=== PATIENT | male | born 2000 | race Two or more races ===

== ENCOUNTER 2022-12-09 23:58 | Emergency (ER) | payer MEDICAID, SELFPAY ==
--- NOTE | ~2022-12-09 | XR_ITS ---
EXAMINATION: XR KNEE, RIGHT CLINICAL INFORMATION: Pain COMPARISON: None available. TECHNIQUE: Four views of the right knee. FINDINGS: No fracture or joint effusion. Alignment is anatomic. Joint spaces are maintained. No abnormal soft tissue calcification. XR/XR knee RT 2V IMPRESSION: No significant abnormality identified.
[2022-12-10 00:08] VITALS: BP 151/64; PULSE 105; RESP 18; TEMP 37.3; O2SAT 97; BMI 34.5
[2022-12-10 03:07] VITALS: BP 114/54; PULSE 78; RESP 14; TEMP 36.7; O2SAT 97
--- NOTE | 2022-12-10 03:09 | PC.NURSE ---
Pt ca&ox4, no signs of distress. Pt reports 8/10 right knee pain Pt unsure of head strike or loc. Pts gf at bedside pt changed into hospital attire. Pt given urinal plan of care ongoing.
[2022-12-10 03:17] LABS: Hematocrit 41.3 % (42.0-52.0); Hemoglobin 13.5 g/dl (14.0-18.0); Mean Corpuscular HGB Conc 32.7 g/dl (31.0-36.0); Mean Corpuscular Hemoglobin 23.4 pg (27.0-33.0); Mean Corpuscular Volume 71.7 fL (80.0-98.0); Mean Platelet Volume 9.6 fL (9.4-12.4); Platelet Count 241 X10*3/uL (160-400); Red Blood Count 5.76 X10*6/uL (4.60-5.80); Red Cell Distribution Width 14.1 % (11.0-16.0); White Blood Count 7.3 X10*3/uL (4.8-10.8)
--- NOTE | 2022-12-10 03:19 | PC.NURSE ---
Pt ambulated to restroom. UA cup given. Plan of care ongoing.
[2022-12-10 03:32] LABS: Alanine Aminotransferase 18 U/L (0-40); Albumin Level 4.4 g/dL (3.5-5.0); Alkaline Phosphatase 67 U/L (39-117); Anion Gap 15 (12-20); Aspartate Amino Transferase 18 U/L (5-37); Bilirubin Total 0.4 mg/dL (0.0-1.0); Blood Urea Nitrogen 10 mg/dL (9-16); Calcium 9.4 mg/dL (8.4-10.2); Carbon Dioxide 21 mmol/L (22-29); Chloride 106 mmol/L (96-108); Estimated Glomerular Filt Rate > 60; Ethanol 92 mg/dL; Glucose Random 101 mg/dL (60-115); Potassium 3.4 mmol/L (3.3-5.1); Sodium 139 mmol/L (135-145); Total Protein 7.2 g/dL (6.5-8.0)
--- NOTE | 2022-12-10 03:49 | PC.NURSE ---
Pt could not provide urine. Pt requested and given water. Plan of care ongoing.
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
[2022-12-10] MEDS: Ibuprofen 600 MG TABLET PO (06:03)
--- NOTE | 2022-12-10 06:09 | PC.NURSE ---
Pt ca&ox4, no signs of distress. Pt medicated per jun. Pt placed in knee brace Pt given crutches
== END 2022-12-10 06:27 | disposition home or self-care (01) ==
PROVIDERS: Emergency Provider Internal Medicine
DX: S83.91XA Sprain of unspecified site of right knee, initial encounter (principal); V28.09XA Other motorcycle driver injured in noncollision transport accident in nontraffic accident, initial encounter; F12.90 Cannabis use, unspecified, uncomplicated; Y93.89 Activity, other specified; Y92.410 Unspecified street and highway as the place of occurrence of the external cause; Y99.9 Unspecified external cause status
CPT/HCPCS: 36415; 73560; 80053; 80307; 85027; 99283; 99284

== ENCOUNTER 2023-01-04 09:41 | Outpatient (AMB) | payer MEDICAID, SELFPAY ==
[2023-01-04 09:43] VITALS: BMI 34.5
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
== END 2023-01-04 10:22 | disposition home or self-care (01) ==
PROVIDERS: Visit Provider Physician Assistant
DX: M23.91 Unspecified internal derangement of right knee (principal)
CPT/HCPCS: 99203

== ENCOUNTER → 2023-01-04 09:41 | Outpatient (BNVA) | payer MEDICAID, SELFPAY | PROVIDERS: Visit Provider Physician Assistant | DX: M23.91 Unspecified internal derangement of right knee (principal) | CPT/HCPCS: 99212 ==

== ENCOUNTER 2023-01-12 19:25 | Emergency (ER) | payer MEDICAID, SELFPAY ==
[2023-01-12 20:15] VITALS: BP 132/74; PULSE 97; RESP 20; TEMP 36.7; O2SAT 98; BMI 29.0
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
--- NOTE | 2023-01-12 20:26 | PC.NURSE ---
pt assess and discharge by provider, this rn just reviewed discharge instruction with pt. pt verbalized understanding.
== END 2023-01-12 20:28 | disposition home or self-care (01) ==
PROVIDERS: Emergency Provider Emergency Medicine
DX: M25.561 Pain in right knee (principal)
CPT/HCPCS: 99282; 99283

== ENCOUNTER 2023-01-13 11:09 | Outpatient (AMB) | payer MEDICAID, SELFPAY ==
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
[2023-01-13 11:28] VITALS: BMI 29.0
== END 2023-01-13 12:08 | disposition home or self-care (01) ==
PROVIDERS: Visit Provider Orthopaedic Surgery
DX: S83.511A Sprain of anterior cruciate ligament of right knee, initial encounter (principal); M25.461 Effusion, right knee
CPT/HCPCS: 99214

== ENCOUNTER → 2023-01-13 11:09 | Outpatient (BNVA) | payer MEDICAID, SELFPAY | PROVIDERS: Visit Provider Orthopaedic Surgery | DX: S83.511A Sprain of anterior cruciate ligament of right knee, initial encounter (principal); M25.461 Effusion, right knee | CPT/HCPCS: 99212 ==

== ENCOUNTER 2023-02-01 07:31 | Day surgery (SDC) | payer MEDICAID, SELFPAY ==
[2023-01-27 17:38] VITALS: BMI 32.3
--- NOTE | 2023-01-31 10:19 | HO.ANESPROP2 ---
Documented by User: Mellissa Casey NP 01/31/23 10:20 HPI - Anesthesia Eval Consult details Narrative: 22yo M for Right ACL Joint Reconstruction w/autograft vs allograft PMFSH Active Problems Active Problems: All Active Problems (Updated 01/27/23 @ 17:30 by Doretha Haywood, [place]) Effusion, right knee (Acute) New tear of anterior cruciate ligament of right knee (Acute) Internal derangement of right knee (Acute) Past Medical History Medical History Left sided abdominal pain of unknown cause Depression History of migraine Asthma Marijuana use Surgical History Surgical History No pertinent past surgical history Social History Alcohol intake: current Alcohol intake frequency: a few times a week Patient Tobacco Use Status: Current everyday Tobacco user Substance Use Type: Marijuana Current occupational status: employed 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 Meds Allergies Allergy/AdvReac Type Severity Reaction Status Date / Time No Known Allergies Allergy Verified 02/07/23 12:44 Exam Exam Date and Time: January 31, 2023 1019 Height,Weight and Vital Signs: Height 5 ft 6 in Weight 90.718 kg Pertinent Lab Results Pertinent Lab Results: Laboratory Tests 12/10/22 03:10 WBC 7.3 Hgb 13.5 L Hct 41.3 L Plt Count 241 Sodium 139 Potassium 3.4 Chloride 106 Carbon Dioxide 21 L BUN 10 Creatinine 0.81 Assessment and Plan Assessment Anesthesia Assessment: Chart Reviewed Documented by User: Heath Sanchez MD 02/23/23 18:13 PMFSH Past Medical History Medical History Left sided abdominal pain of unknown cause Depression History of migraine Asthma Marijuana use Family History Family history of problems with anesthesia: No Surgical History Surgical History No pertinent past surgical history History of Problems with Anesthesia: No Social History (Reviewed 11/07/23 @ 12:44 by NARDA Katz Alcohol intake: current Alcohol intake frequency: a few times a week Patient Tobacco Use Status: Current everyday Tobacco user Substance Use Type: Marijuana Current occupational status: employed 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 Allergies Allergy/AdvReac Type Severity Reaction Status Date / Time No Known Allergies Allergy Verified 02/07/23 12:44 Exam Airway Mallampati Class: IV Loose/Missing/Broken Teeth: Yes Assessment and Plan Assessment Anesthesia Assessment: Anesthesia Plan Discussed Final Anesthetic Review Family History of Problems with Anesthesia: No History of Problems with Anesthesia: No NPO: Yes ASA Class: III Final Preanesthetic Review: Meds/Allgs Chart Reviewed, Consent Obtained/Reviewed and Anes Risks/Benef Reviewed Patient Risk: Intermediate Procedure Risk: Intermediate Anesthetic Plan Anesthetic Plan: MAC:, Regional Block and Agree w/ Assess. and Plan Disposition: Standard PACU
[2023-02-01] VITALS (9 sets, daily range): BP systolic 132–151; BP diastolic 65–86; PULSE 82–95; RESP 15–20; TEMP 36.3–36.6; O2SAT 97–100; BMI 33.1
[2023-02-01] MEDS: Lactated Ringers 1,000 ML 100 ML IVCONT (08:17)
[2023-02-01] MEDS: HYDROmorphone HCl 0.5 MG/0.5 ML SYRINGE IVPUSH (11:42)
[2023-02-01] MEDS: oxyCODONE HCl Immed Release 5 MG TABLET PO (11:53)
[2023-02-01] MEDS: HYDROmorphone HCl 0.5 MG/0.5 ML SYRINGE 0.25 MG IVPUSH ×2 (12:00→12:10)
--- NOTE | 2023-02-01 12:01 | P.BOP_ITS ---
Brief Operative Note Date of Service: 02/01/23 Pre-op diagnosis: right acl rupture Post-op diagnosis: same Procedure: Right ACL reconstruction with hamstring autograft and posterior tibial tendon allograft Implants: Mars and Nephew endo button and 11x25 mm interference screw Surgeon: Cleve Franco MD Anesthesia: GETA Was an Supervisor [employer] used for this Procedure?: Yes Supervisor [employer]: Juana Henao Estimated blood loss (mL): 20 Tourniquet time (min): 65 IV fluids (mL): 1,000 Pathology: none sent Condition: stable Disposition: PACU
--- NOTE | 2023-02-01 13:08 | PC.NURSE ---
PATIENT DISCHARGED HOME VIA UBER AND HIS AT HIS SIDE.
--- NOTE | 2023-02-06 11:41 | P.OP_ITS ---
Operative Note Operative Note Date of Service: 02/01/23 Narrative: Date of Service: 02/01/23 Pre-op diagnosis: right acl rupture Post-op diagnosis: same Procedure: Right ACL reconstruction with hamstring autograft and posterior tibial tendon allograft Implants: Mars and Nephew endo button and 11x25 mm interference screw Surgeon: Cleve Franco MD Anesthesia: GETA Was an Manager Occupational used for this Procedure?: Yes Manager Occupational: Juana Henao Estimated blood loss (mL): 20 Tourniquet time (min): 65 IV fluids (mL): 1,000 Pathology: none sent Condition: stable Disposition: PACU Procedure in detail: Patient was brought to the operating room placed supine on the arthroscopic table and prepped and draped in standard sterile fashion. A time-out was called to identify proper site proper procedure proper surgeon and IV antibiotics per weight were administered. Under anesthesia he had a + pivot shift. I began making an oblique 2 cm incision over the pes anserine bursa. Sartorius fascia was identified and incised and the to pes tendons were identified. First was grasped and whipstitched and then distally and adhesions removed from the inferior border and a tendon stripper was used to remove this tendon. This was small and likely the gracilis. I then identified the 2nd tendon and repeated this process and remove the semi tendinosis which was much larger. These were whip stitched and full did on the back table they passed easily through 7 Sizer and so the decision was made to open the allograft as well. I began by exsanguinating the limb and insufflating tourniquet to 300 mm Hg. Then made a standard anterolateral stab incision. The knee was insufflated with water and 30 degree arthroscope was placed. There was grade 1 fibrillations of the patella but overall suprapatellar pouch and the gutters were clean. I descended into the medial compartment where I made my far medial portal under direct visualization. There was a small posteromedial meniscus tear with a stable root. There was normal medial compartment otherwise. I then examined the notch where there was a + empty wall sign and an intact PCL. The lateral compartment was nl with no meniscal damage. I debrided the stump and acl footprint and performed a limited notchplasty. I then, through a far AM portal and a 7mm behind the back guide, drilled a k-wire through the LFC with the knee in hyper- flexion. I measured the tunnel as a 31 and then after sizing the hybrid allograft on the back table drilled a 25 mm tunnel with an 11 mm reamer. The final 6 mm was drilled with a 4.5 reamer. I then pulled a suture through the femoral tunnel and turned my attention to the tibia. I did examine the femoral tunnel and was satisfied with the posterior wall and its location low and medial at the anatomic footprint. I placed my tibial drill guide in 55 deg and, through a anteromedial inc just lateral to the tibial tubercle placed a k-wire into the notch exiting just medial to the anterior horn insertion of the lateral meniscus. I then over-reamed with an 11 reamer. I cleaned the tunnels up with a shaver. On the back table I whip-stitched the allograft to fit through an 11 aperture and attached the femoral button to the looped end. I placed the graft on 15lbs of tension for 10 minutes. I then passed the allograft through the tibial tunnel and femoral tunnel and flipped the button. I cycled the knee about 10-15 cycles and then placed a tibial interference screw with the knee in hyper-extension while holding the graft taught. Once I was satisfied that the interference screw was buried I examined the ACL and the medial meniscus repair. The repair was stable and the ACL was not impinging and there was a negative pivot shift. I then removed all instrumentation and closed the incisions with nylon. Patient was then placed in sterile dressings and a hinged knee brace. She was then extubated brought recovery room stable condition. There were no known complications.
== END 2023-02-01 13:05 | disposition home or self-care (01) ==
LOC: HO.SSS 07:32
PROVIDERS: Visit Provider Orthopaedic Surgery
PROC: (CPT 29888; principal; 2023-02-01 09:40)
DX: S83.511A Sprain of anterior cruciate ligament of right knee, initial encounter (principal); Y35.813A Legal intervention involving manhandling, suspect injured, initial encounter; Y93.02 Activity, running; Y92.410 Unspecified street and highway as the place of occurrence of the external cause; Y99.9 Unspecified external cause status
CPT/HCPCS: 29888; 29882; C1713; C1769; J0131; J0171; J0690; J1100; J1170; J2250; J2405; J3010

== ENCOUNTER → 2023-02-01 07:31 | Outpatient (BNV) | payer MEDICAID, SELFPAY | PROVIDERS: Visit Provider Orthopaedic Surgery | DX: S83.511A Sprain of anterior cruciate ligament of right knee, initial encounter (principal) | CPT/HCPCS: 29888 ==

== ENCOUNTER 2023-02-07 12:41 | Outpatient (AMB) | payer MEDICAID, SELFPAY ==
--- NOTE | 2023-02-07 12:43 | MHC.OFFVIS ---
Intake Intake Visit Reasons: PO-Rt ACL Reconstruction 02/01 NE Intake Note: Kristopher is a 22 year old male who presents today for his first post operative appointment s/p Right ACL Recon 02/01/23. Patient reports that he is having continued pain. He has been taking percocet and it is not helping with his pain. He has numbness nad tingling from the knee to the ankle. Allergies No Known Allergies Allergy (Verified 02/07/23 12:44) HPI PO-Rt ACL Reconstruction 02/01 NE HPI Details 22-year-old male who presents in the office today 6 days status post right ACL reconstruction with hamstring autograft and posterior tibial tendon allograft, which was performed on 02/01/[address] Franco. The patient reports having continued pain. He confirms he has been taking percocet and states it is not helping with his pain. He confirms numbness and tingling form the knee radiating down to the ankle. 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 Moderate effusion. ROM is 0-40 degrees. NVI. Assessment & Plan Assessment & Plan (1) S/P ACL reconstruction: Comment: right 02/01/2023 NE Code(s): Z98.890 - Other specified postprocedural states Plan Mr. Bucio is a 22-year-old male who presents in the office today 6 days status post right ACL reconstruction with hamstring autograft and posterior tibial tendon allograft, which was performed on 02/01/[address] Franco. The patient reports having continued pain. He confirms he has been taking percocet and states it is not helping with his pain. He confirms numbness and tingling form the knee radiating down to the ankle. The patient is to remain in the brace at all time. He may begin to shower at this time, however he is not to submerge in the bathtub. Steri-stripes are to remain in place until they fall off on their own. He was referred for out patient physical therapy. At this time he does not have a PCP therefore, he is unable to attend a physical therapy referral. Ceci, the nurse navigator, was available to speak with the patient while in the office today and she instructed the patient to reach out to [facility] to establish care and then to begin physical therapy. Follow up will be in [address] Franco, or sooner if needed. Medications: Refilled oxycodone-acetaminophen 5-325 mg (Percocet) Partial Fill upon patient request. 1 tab PO Q4-6H PRN 42 tabs 0RF pain (scale score 4-6) 7 days Patient Instructions: Scribed for Juana Henao PA-C by Rox Prince medical scheduler, on 02/07/2023 at 12:43 pm, EST. Coding Level of Care Code Global (57361) Diagnoses S/P ACL reconstruction Z98.890
== END 2023-02-07 13:26 | disposition home or self-care (01) ==
PROVIDERS: Visit Provider Physician Assistant
DX: Z98.890 Other specified postprocedural states (principal)
CPT/HCPCS: 99024

== ENCOUNTER → 2023-02-07 12:41 | Outpatient (BNVA) | payer MEDICAID, SELFPAY | PROVIDERS: Visit Provider Physician Assistant ==

== ENCOUNTER 2023-03-20 15:00 | Outpatient (RCR) | payer MEDICAID, SELFPAY ==
--- NOTE | 2023-03-02 10:30 | MHC.PT.EP ---
[facility] [place] Office [place] Office [place] Office [address] Deepa Giraldo [address] [phone] F: [phone] F: [phone] F: [phone] F: [phone] Physical Therapy Plan of Care Date of Evaluation: 03/01/23 Date of Surgery: 02/01/2023 Diagnosis: Right ACL reconstruction with hamstring autograft and posterior tibial tendon allograft (surgery: 02/01/23) Assessment: Patient is a 22 y.o. male who is referred to PT by Juana Henao PA-C, with Dx of Right ACL reconstruction with hamstring autograft and posterior tibial tendon allograft (surgery: 02/01/23). Patient impairments include pain, swelling, impaired healing incision site, limited ROM, weakness in quad, glutes, antalgic gait. Patient current functional limitations are gait, stair use, prolonged walking, up/down off low surface, bend/squat, prolonged standing. Patient will benefit from skilled PT to address aforementioned impairments and functional limitations to meet established goals. Patient has been overdoing it at home and weaned himself off of brace and assistive devices on his own, despite not being ready to do so as he still has deficits. Increased education today on tissue healing and the needs to not stress graft and avoid re-injury. Frequency and Duration: The patient will be seen 2x/week for 6 weeks Short Term Goals: 3 weeks Patient demonstrates consistency and independence with HEP to self manage symptoms. 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 Manual therapy to restore motion and function. Therapeutic exercise to improve strength and flexibility. Neuromuscular re-education for posture and balance. Therapeutic activities to return to functional activities of daily living. Electronically signed by: Jeffry De Anda, PT, DPT Please sign and return to therapist. Thank you for your referral.
--- NOTE | 2023-05-09 12:25 | MHC.PT.DC ---
[facility] [place] Office [place] Office [place] Office [address] Deepa Giraldo [address] [facility] [phone] F: [phone] F: [phone] F: [phone] F: [phone] Physical Therapy Discharge Report Diagnosis: Right ACL reconstruction with hamstring autograft and posterior tibial tendon allograft (surgery: 02/01/23) Date of Surgery: 02/01/2023 Date of Evaluation: 03/01/23 Date of Discharge: 05/09/23 Treatments to Date: 3 Cancellations to Date: 6 No Shows to Date: 3 Discharge Status: Visit Non-compliance Discharge Summary: Kristopher had poor compliance throughout PT; did not follow post-op precautions and recommendations on brace use. His quadriceps muscle was still very weak at his last attended visit on 03/20/23. He is discharged for non-compliance with PT attendance. I made physician aware of patient's time in PT and discharge. Electronically signed by: Jeffry De Anda, PT, DPT Please sign and return to therapist. Thank you for your referral.
== END 2023-05-09 12:25 | disposition home or self-care (01) ==
LOC: HO.PT 15:00
PROVIDERS: PCP Internal Medicine; Visit Provider Physician Assistant
DX: M23.91 Unspecified internal derangement of right knee (principal); S83.511A Sprain of anterior cruciate ligament of right knee, initial encounter; Z98.890 Other specified postprocedural states
CPT/HCPCS: 97014; 97110; 97161; 97530